=== PATIENT | female | born 1975 | race Caucasian/White ===

== ENCOUNTER 2024-05-07 06:12 | Day surgery (SDC) | payer OTHER ==
[~2024-05-07] VITALS: Ht 157.5 cm; Wt 72.6 kg
[2024-05-07] MEDS ORDERED: fentaNYL citrate 0.05 MG/ML VIAL ONE (07:22)
[2024-05-07] MEDS ORDERED: MIDAZOLAM 2 MG/2 ML VIAL ONE (07:23)
[2024-05-07] MEDS: fentaNYL citrate 0.05 MG/ML VIAL IVP ONE (07:43)
[2024-05-07] MEDS: LIDOCAINE 2% 100 MG/5 ML UJET TP ONE (07:53)
== END 2024-05-07 08:50 | disposition home or self-care (01) ==
LOC: MDS 06:12 → MMU 06:39 → MDS 08:50
PROVIDERS: ATTEND Internal Medicine Gastroenterology
DX: K62.89 Other specified diseases of anus and rectum (principal); K57.30 Diverticulosis of large intestine without perforation or abscess without bleeding; I10 Essential (primary) hypertension; Z98.891 History of uterine scar from previous surgery; Z79.899 Other long term (current) drug therapy; Z98.890 Other specified postprocedural states
CPT/HCPCS: 45378; J3010; J2250